=== PATIENT | male | born 1995 | race Caucasian/White ===

== ENCOUNTER 2020-12-22 16:41 | Emergency (ER) | payer OTHER ==
[2020-12-22 18:41] VITALS: RESP 20; TEMP 98.6
[2020-12-22] MEDS ORDERED: BACITRACIN OINT 1 EACH PACKET TOPICAL ONE (20:07)
[2020-12-22] MEDS ORDERED: LIDOCAINE 1% INJ 10MG/ML (20 ML MDV) SQ ONE (20:07)
[2020-12-22 20:08] VITALS: BP 148/64; PULSE 111
--- NOTE | 2020-12-22 20:12 | ED ---
Wound/Laceration HPI - General Chief Complaint: Wound/Laceration Stated Complaint: [facility] Rt Knee Lac Time Seen by Provider: 12/22/20 19:59 Source: patient, family, RN notes reviewed Mode of arrival: ambulatory Limitations: no limitations - History of Present Illness Initial Comments: Patient is a 25-year-old male presenting to the emergency Department with complaints of a laceration to the right upper leg. Patient was at work today, cut his leg on a "spinning metal cut wheel." Bleeding is controlled. He is not on blood thinners. His tetanus vaccine is up-to-date. Patient is no further complaints today. - Related Data Allergies Allergy/AdvReac Type Severity Reaction Status Date / Time No Known Allergies Allergy Verified 12/22/20 18:41 Review of Systems ROS Statement: Those systems with pertinent positive or pertinent negative responses have been documented in the HPI. ROS Other: All systems not noted in ROS Statement are negative. Past Medical History Past Medical History: No Reported History Past Surgical History: No Surgical Hx Reported Past Psychological History: No Psychological Hx Reported Smoking Status: Current every day smoker Past Alcohol Use History: Occasional Past Drug Use History: Marijuana General Exam - General Exam Comments Initial Comments: GENERAL: Patient is well-developed and well-nourished. Patient is nontoxic and in no a cute distress. HEAD: Atraumatic, normocephalic. EYES: Pupils equal round and reactive to light, extraocular movements intact, sclera anicteric, conjunctiva are normal. Eyelids were unremarkable. ENT: Moist mucous membranes. LUNGS: Unlabored respirations. Breath sounds clear to auscultation bilaterally and equal. No wheezes rales or rhonchi. HEART: Regular rate and rhythm without murmurs, rubs or gallops. MUSCULOSKELETAL: Normal extremities with adequate strength and normal range of motion, no pitting or edema. No clubbing or cyanosis. NEUROLOGICAL: Patient is alert and oriented x 3. SKIN: Warm, Dry, normal turgor, no rashes. Patient has a 2 cm laceration to the right upper leg, medial aspect, just proximal to the knee. It is no active bleeding. Limitations: no limitations Course Vital Signs 12/22/20 12/22/20 18:39 20:00 Temperature 98.6 F Pulse Rate 117 H 111 H Respiratory 20 20 Rate Blood Pressure 111/69 148/64 O2 Sat by Pulse 99 100 Oximetry Procedures - Laceration Laceration #1 Consent Obtained: verbal consent Indication: laceration Site: lower extremity (right upper leg) Size (cm): 2 Description: linear Depth: simple, single layer Anesthetic Used: lidocaine 1% Anesthesia Technique: local infiltration Amount (mls): 3 Pre-repair: irrigated extensively Type of Sutures: nylon Size of Sutures: 4-0 Number of Sutures: 6 Technique: simple, interrupted Patient Tolerated Procedure: well Medical Decision Making - Medical Decision Making Patient is a 25-year-old male here with a 2 cm laceration to the right upper leg. No active bleeding, he is not on blood thinners. His tetanus is up-to-date. Patient's wound was cleaned and closed with 6, 4-0 sutures. Patient tolerated procedure well. He is stable for discharge. Sutures need to be removed in 7-10 days. Keep area clean and dry. He is agreeable to this. Disposition Clinical Impression: Laceration of right thigh Disposition: HOME SELF-CARE Condition: Stable Instructions (If sedation given, give patient instructions): Care For Your Stitches (ED) Additional Instructions: Please return to the Emergency Department if symptoms worsen or any other concerns. Stitches need to be removed in 7-10 days as discussed. Keep area covered while working. Keep area clean and dry. Is patient prescribed a controlled substance at d/c from ED?: No Referrals: None,Stated [Primary Care Provider] - 1-2 days Time of Disposition: 20:40
== END 2020-12-22 21:14 | disposition home or self-care (01) ==
LOC: EC 16:41
DX: S71.111A Laceration without foreign body, right thigh, initial encounter (principal); F17.200 Nicotine dependence, unspecified, uncomplicated; F12.90 Cannabis use, unspecified, uncomplicated; W26.8XXA Contact with other sharp object(s), not elsewhere classified, initial encounter
CPT/HCPCS: 99282; 12001; J2001

== ENCOUNTER 2021-07-30 14:09 | Emergency (ER) | payer OTHER ==
[2021-07-30 16:04] VITALS: BP 121/61; PULSE 79; RESP 16; TEMP 98.4
[2021-07-30] MEDS ORDERED: TETRACAINE 0.5% OPHTH (PF) DROPS 4 ML BTL RIGHT EYE STA (17:48)
[2021-07-30] MEDS ORDERED: FLUORESCEIN STRIPS 1 MG STRIP RIGHT EYE ONE (18:43)
[2021-07-30] MEDS ORDERED: ERYTHROMYCIN 5 MG/GM OPHTH OINT 3.5 GM TUBE RIGHT EYE STA (18:52)
--- NOTE | 2021-07-30 19:04 | ED ---
Eye Problem HPI - General Chief complaint: Eye Problems Stated complaint: [facility] - Object in Right Eye Time Seen by Provider: 07/30/21 17:43 Source: patient Mode of arrival: ambulatory Limitations: no limitations - History of Present Illness Initial comments: Patient is a 26-year-old male presenting with chief complaint of right eye pain. Patient was grinding metal at work, when he felt sudden onset of sharp pain in the right eye. He is also complaining of redness and watering from the eye. Patient admits to a foreign body sensation when blinking. He denies any vision changes. He admits to some light sensitivity. Denies discharge. Patient states that he has worn contacts in the past, however he has not worn them for the last several weeks and is wearing glasses today. - Related Data Previous Rx's Medication Instructions Recorded Erythromycin Ophth Oint [Romycin 1 applic RIGHT EYE QID 5 Days #3.5 07/30/21 Ophth Oint] gm Allergies Allergy/AdvReac Type Severity Reaction Status Date / Time No Known Allergies Allergy Verified 07/30/21 19:10 Review of Systems ROS Statement: Those systems with pertinent positive or pertinent negative responses have been documented in the HPI. ROS Other: All systems not noted in ROS Statement are negative. Past Medical History Past Medical History: No Reported History Past Surgical History: No Surgical Hx Reported Past Psychological History: No Psychological Hx Reported Smoking Status: Current every day smoker Past Alcohol Use History: Occasional Past Drug Use History: Marijuana General Exam Limitations: no limitations General appearance: alert, in no apparent distress Head exam: Present: atraumatic, normocephalic, normal inspection Expanded Eyelids: Normal Inspection: Bilateral Pupils: Regular, Round: Bilateral Sclera/Conjunctival: Injection: Right Anterior chamber: Normal Inspection: Bilateral Neck exam: Present: normal inspection Neurological exam: Present: alert, oriented X3, CN II-XII intact Psychiatric exam: Present: normal affect, normal mood Skin exam: Present: warm, dry, intact, normal color. Absent: rash Course Vital Signs 07/30/21 16:02 Temperature 98.4 F Pulse Rate 79 Respiratory 16 Rate Blood Pressure 121/61 O2 Sat by Pulse 100 Oximetry Medical Decision Making - Medical Decision Making Patient is a 26-year-old male presenting with chief complaint of right eye pain. Pain was sudden in onset after he was grinding metal at work. Patient believes that a piece flew into the eye. Patient is not a current contact lens wearer. He denies any position change this, admits to redness, foreign body sensation, and watering of eyes. On examination there is scleral injection. The patient is clearly photophobic. Tetracaine eyedrops were applied, lid was inverted and no foreign body was seen. Fluorescein stain was applied and eye was examined with lamp, this revealed a corneal abrasion and no foreign body was seen on repeat examination. Slit lamp was utilized, continued to show no evidence of foreign body. Negative Reggie sign. Extraocular motions are intact. Patient was given first dose of erythromycin ophthalmic ointment here in the ER. He was prescribed erythromycin ophthalmic ointment 4 times a day for 5 days. Instruct ed to follow-up with PCP and ophthalmology. I educated him on return parameters and alarming symptoms. Educated him on no contact lens use until cleared by ophthalmology. Report back to ER if any worsening symptoms. I answered all questions. Patient conveyed verbal understanding and agreed to the plan. Disposition Clinical Impression: Corneal abrasion Disposition: HOME SELF-CARE Condition: Good Instructions (If sedation given, give patient instructions): Abrasion (ED) Additional Instructions: Use medication as directed. Follow up with PCP and ophthalmology. Report back to ER with any worsening symptoms. Do not wear contact lenses until cleared by ophthalmology. Prescriptions: Erythromycin Ophth Oint [Romycin Ophth Oint] 1 applic RIGHT EYE QID 5 Days #3.5 gm Is patient prescribed a controlled substance at d/c from ED?: No Referrals: Nonstaff,Physician [Primary Care Provider] - 1-2 days Kartik Palafox MD [STAFF PHYSICIAN] - 1-2 days Time of Disposition: 19:36
== END 2021-07-30 20:23 | disposition home or self-care (01) ==
LOC: EC 14:09
DX: S05.01XA Injury of conjunctiva and corneal abrasion without foreign body, right eye, initial encounter (principal); F17.200 Nicotine dependence, unspecified, uncomplicated; X58.XXXA Exposure to other specified factors, initial encounter; Y93.89 Activity, other specified; Y99.0 Civilian activity done for income or pay
CPT/HCPCS: 99283